=== PATIENT | female | born 1975 | race Caucasian/White ===

== ENCOUNTER 2017-01-23 08:00 | Outpatient (CLI) | payer OTHER ==
[2017-01-23 19:14] LABS: BASOPHILS % (AUTO) 0.5 %; EOSINOPHILS # (AUTO) 0.1 10^3/uL (0.0-0.7); HCT - HEMATOCRIT 40.4 % (37.0-47.0); HGB - HEMOGLOBIN 13.4 g/dL (12.0-16.0); LYMPHOCYTES # (AUTO) 1.8 10^3/uL (1.5-3.5); MEAN CORPUSCULAR HEMOGLOBIN 30.8 pg (27.0-31.0); MEAN CORPUSCULAR VOLUME 93.3 fL (81.0-99.0); MEAN PLATELET VOLUME 8.7 fL (7.9-10.8); MONOCYTES # (AUTO) 0.4 10^3/uL (0.0-1.0); MONOCYTES % (AUTO) 5.9 %; NEUTROPHILS # (AUTO) 5.2 10^3/uL (1.5-6.6); NEUTROPHILS % (AUTO) 68.6 %; NUCLEATED RED BLOOD CELLS AUTO 0.1 /100WBC; RED BLOOD COUNT 4.33 10^6/uL (4.20-5.40); RED CELL DISTRIBUTION WIDTH 13.7 % (12.0-15.0); UNCORRECTED WHITE BLOOD COUNT 7.5 x10^3/uL; WHITE BLOOD COUNT 7.5 x10^3/uL (4.8-10.8)
[2017-01-23 19:31] LABS: ALBUMIN/GLOBULIN RATIO 1.2 (1.0-2.2); BILIRUBIN,TOTAL 0.6 mg/dL (0.2-1.0); BUN - BLOOD UREA NITROGEN 8 mg/dL (6-20); CALCIUM 8.9 mg/dL (8.5-10.3); CARBON DIOXIDE - CO2 24 mmol/L (21-32); CHLORIDE 102 mmol/L (101-111); CHOL/HDL RATIO 6.9 (<4.4); CHOLESTEROL 233 mg/dL; CREATININE 0.6 mg/dL (0.4-1.0); GFR - MDRD 110 (>89); GLUCOSE 90 mg/dL (70-100); HDL CHOLESTEROL 34 mg/dL; POTASSIUM 4.1 mmol/L (3.5-5.0); SODIUM 135 mmol/L (135-145); TRIGLYCERIDES 138 mg/dL; VLDL CHOLESTEROL 28 mg/dL
[2017-01-23 19:40] LABS: THYROID STIMULATING HORMONE 1.7 uIU/mL (0.34-5.60)
== END 2017-01-23 08:01 | disposition home or self-care (01) ==
LOC: LAB.N 08:00
PROVIDERS: ATTEND Family Medicine
DX: J45.909 Unspecified asthma, uncomplicated (principal); E06.3 Autoimmune thyroiditis; F41.8 Other specified anxiety disorders; E66.9 Obesity, unspecified; E55.9 Vitamin D deficiency, unspecified
CPT/HCPCS: 36415; 80050; 80061; 82306; 84432; 84439; 84481; 86800

== ENCOUNTER 2017-02-10 12:32 | Emergency (ER) | payer OTHER, MEDICAID ==
[2017-02-10] MEDS ORDERED: DEXAMETHASONE 10 MG/ML VIAL PO STA (13:05)
[2017-02-10] MEDS ORDERED: CHERRY SYRUP 10 ML UDC PO ONE (13:17)
[2017-02-10] MEDS ORDERED: DEXAMETHASONE 10 MG/ML VIAL ONE (13:17)
[2017-02-10 13:33] LABS: RAPID STREP SCREEN REAGENT QC YELLOW (YELLOW)
[2017-02-10 14:05] VITALS: BP 123/84
--- NOTE | 2017-02-10 14:08 | XRAY Preliminary Report ---
Exam: XR CHEST 2 VIEW PA/LAT IMPRESSION: Normal 2-view chest radiography. [facility] SITE ID: [id number]
--- NOTE | 2017-02-10 14:11 | ED Physician Documentation ---
PD HPI URI - Stated complaint Stated Complaint: BACK PX WHEN BREATHING/COUGH - Chief complaint Chief Complaint: Resp - History obtained from History obtained from: Patient - History of Present Illness Timing - onset: How many days ago (3) Timing duration: Days (3) Timing details: Gradual onset, Still present Associated symptoms: Nasal congestion, Rhinorrhea, Sore throat, Swollen nodes, Productive cough Contributing factors: Sick contact Improves by: Rest, Medication, MDI/nebulizer Worsened by: Activity Similar symptoms before: Diagnosis (pneumonia and bronchitis.) Recently seen: Not recently seen Review of Systems Constitutional: reports: Myalgias, Fatigue. 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 - Present Medications Home Medications: Ambulatory Orders Medication Instructions Recorded Confirmed Azithromycin [Zithromax] 250 mg PO DAILY #6 tablet 02/10/17 Benzonatate [Tessalon] 100 - 200 mg PO TID PRN #20 capsule 02/10/17 Escitalopram Oxalate [Lexapro] 20 mg PO DAILY 02/10/17 02/10/17 Gabapentin 300 mg PO DAILY 02/10/17 02/10/17 Levalbuterol Tartrate [Xopenex Hfa] 1 - 2 puffs PO Q4HR 02/10/17 02/10/17 busPIRone [Buspar] 15 mg PO BID 02/10/17 02/10/17 predniSONE [Deltasone] 10 mg PO DAILY #26 tablet 02/10/17 - Allergies Allergies/Adverse Reactions: Allergies Allergy/AdvReac Type Severity Reaction Status Date / Time albuterol Allergy Dizziness Verified 02/10/17 12:53 tramadol Allergy Itching Verified 02/10/17 12:53 codeine AdvReac Nausea Verified 02/10/17 12:53 - Social History Does the pt smoke?: No Smoking Status: Never smoker PD ED PE NORMAL - Vitals Vital signs reviewed: Yes (hypertensive) - General General: Alert and oriented X 3, No acute distress, Well developed/nourished - HEENT HEENT: Atraumatic, PERRL, EOMI, Ears normal, Moist mucous membranes, Other ( posterior pharyngeal erythema ) - Neck Neck: Supple, no meningeal sign, No bony TTP - Cardiac Cardiac: RRR, No murmur - Respiratory Respiratory: No respiratory distress, Other (dimisished breath sounds and scattered wheezes) - Abdomen Abdomen: Soft, Non tender - Back Back: No CVA TTP, No spinal TTP - Derm Derm: Normal color, Warm and dry, No rash - Extremities Extremities: No deformity, No edema - Neuro Neuro: No motor deficit, No sensory deficit Eye Opening: Spontaneous Motor: Obeys Commands Verbal: Oriented GCS Score: 15 - Psych Psych: Normal mood, Normal affect Results - Vitals Vitals: Vital Signs - 24 hr 02/10/17 12:40 Temperature 36.6 C Heart Rate 81 Respiratory 18 Rate Blood Pressure 128/83 H O2 Saturation 99 Oxygen O2 Source Room air - Labs Labs: Laboratory Tests 02/10/17 13:05 Group A Strep Rapid Negative - Rads (name of study) 2 view chest Radiology: Prelim report reviewed (Impression: Normal two-view chest radiography.), EMP read indepedently, See rad report PD MEDICAL DECISION MAKING - ED course Complexity details: reviewed results, re-evaluated patient, considered differential, d/w patient ED course: 41-year-old female with a history of asthma has developed a cough congestion and production of sputum. She did have a sore throat with the onset of this illness and continues to have some sore throat and she is coughing up yellow and green phlegm. She has had pneumonia previously and has a pain in her back in a specific area with each cough. Her chest x-ray is clear she is administered dexamethasone orally in the emergency department and we will put her on some antibiotic. Departure - Departure Disposition: 01 Home, Self Care Clinical Impression: Asthmatic bronchitis Qualifiers: Asthma severity: moderate Asthma complication type: with acute exacerbation Condition: Stable Instructions: ED Bronchitis Asthmatic Follow-Up: Oswaldo Calderón MD [Primary Care Provider] - Prescriptions: Azithromycin [Zithromax] 250 mg PO DAILY #6 tablet Benzonatate [Tessalon] 100 - 200 mg PO TID PRN #20 capsule PRN Reason: Cough predniSONE [Deltasone] 10 mg PO DAILY #26 tablet
--- NOTE | 2017-02-10 14:14 | XRAY Report ---
EXAM: CHEST RADIOGRAPHY EXAM DATE: 02/10/2017 01:46 PM. CLINICAL HISTORY: Cough, shortness of breath. Pleuritic back pain for one day. COMPARISON: None. TECHNIQUE: 2 views. FINDINGS: Lungs/Pleura: No focal opacities evident. No pleural effusion. No pneumothorax. Normal volumes. Mediastinum: Heart and mediastinal contours are unremarkable. Other: None. IMPRESSION: Normal 2-view chest radiography. [facility] Referring Provider Line: [phone] SITE ID: [id number]
== END 2017-02-10 14:22 | disposition home or self-care (01) ==
LOC: ED 12:32
DX: J45.41 Moderate persistent asthma with (acute) exacerbation (principal); J40 Bronchitis, not specified as acute or chronic
CPT/HCPCS: 71020; 87070; 87430; 99283; A9270

== ENCOUNTER 2017-07-03 02:42 | Outpatient (CLI) | payer OTHER, MEDICAID | END 2017-07-03 02:43 | disposition short-term general hospital (02) | LOC: EMS 02:42 | PROVIDERS: ATTEND Surgery | DX: R10.9 Unspecified abdominal pain (principal); R11.2 Nausea with vomiting, unspecified | CPT/HCPCS: A0425; A0427 ==

== ENCOUNTER 2017-09-08 12:00 | Outpatient (CLI) | END 2017-09-08 12:01 | disposition home or self-care (01) ==

== ENCOUNTER 2017-10-08 09:06 | Outpatient (CLI) | payer MEDICAID ==
[2017-10-08 12:37] LABS: BASOPHILS % (AUTO) 0.6 %; EOSINOPHILS # (AUTO) 0.1 10^3/uL (0.0-0.7); EOSINOPHILS % (AUTO) 1.2 %; HGB - HEMOGLOBIN 13.7 g/dL (12.0-16.0); LYMPHOCYTES # (AUTO) 1.7 10^3/uL (1.5-3.5); LYMPHOCYTES % (AUTO) 22.7 %; MEAN CORPUSCULAR HEMOGLOBIN 30.5 pg (27.0-31.0); MEAN CORPUSCULAR HGB CONC 33.5 g/dL (32.0-36.0); MEAN CORPUSCULAR VOLUME 90.8 fL (81.0-99.0); MEAN PLATELET VOLUME 8.7 fL (7.9-10.8); MONOCYTES # (AUTO) 0.4 10^3/uL (0.0-1.0); MONOCYTES % (AUTO) 4.9 %; NEUTROPHILS # (AUTO) 5.4 10^3/uL (1.5-6.6); NEUTROPHILS % (AUTO) 70.6 %; PLT - PLATELET COUNT 303 10^3/uL (130-450); RED BLOOD COUNT 4.51 10^6/uL (4.20-5.40); RED CELL DISTRIBUTION WIDTH 14.3 % (12.0-15.0); WHITE BLOOD COUNT 7.7 x10^3/uL (4.8-10.8)
[2017-10-08 12:55] LABS: THYROID STIMULATING HORMONE 2.16 uIU/mL (0.34-5.60)
[2017-10-08 12:57] LABS: ALKALINE PHOSPHATASE 65 IU/L (42-121); ALT ALANINE AMINOTRANSFERASE 17 IU/L (10-60); AST ASPARTATE AMINOTRANSFERASE 18 IU/L (10-42); BILIRUBIN,TOTAL 0.6 mg/dL (0.2-1.0); BUN - BLOOD UREA NITROGEN 13 mg/dL (6-20); CALCIUM 9.1 mg/dL (8.5-10.3); CARBON DIOXIDE - CO2 24 mmol/L (21-32); CHLORIDE 104 mmol/L (101-111); CHOL/HDL RATIO 8.6 (<4.4); CHOLESTEROL 293 mg/dL; CREATININE 0.7 mg/dL (0.4-1.0); GFR - MDRD 92 (>89); GLUCOSE 98 mg/dL (70-100); HDL CHOLESTEROL 34 mg/dL; LDL CHOLESTEROL,CALCULATED 215 mg/dL; LDL/HDL RATIO 6.3 (<4.4); SODIUM 137 mmol/L (135-145); TOTAL PROTEIN 8.1 g/dL (6.7-8.2); VLDL CHOLESTEROL 44 mg/dL
[2017-10-08 12:59] LABS: FREE T4 (FREE THYROXINE) 0.79 ng/dL (0.58-1.64)
== END 2017-10-08 09:07 | disposition home or self-care (01) ==
LOC: LAB.N 09:06
PROVIDERS: ATTEND Family Medicine
DX: E55.9 Vitamin D deficiency, unspecified (principal); E66.9 Obesity, unspecified; E06.3 Autoimmune thyroiditis
CPT/HCPCS: 36415; 80050; 80061; 82306; 83721; 84439

== ENCOUNTER 2018-02-23 08:00 | Outpatient (CLI) | payer OTHER, MEDICAID ==
[2018-02-23 14:36] LABS: BASOPHILS % (AUTO) 0.4 %; EOSINOPHILS # (AUTO) 0.1 10^3/uL (0.0-0.7); HGB - HEMOGLOBIN 13.4 g/dL (12.0-16.0); LYMPHOCYTES # (AUTO) 2.1 10^3/uL (1.5-3.5); MEAN CORPUSCULAR HEMOGLOBIN 30.8 pg (27.0-31.0); MEAN CORPUSCULAR HGB CONC 33.9 g/dL (32.0-36.0); MEAN PLATELET VOLUME 9.2 fL (7.9-10.8); MONOCYTES # (AUTO) 0.4 10^3/uL (0.0-1.0); MONOCYTES % (AUTO) 6.1 %; NEUTROPHILS # (AUTO) 4.5 10^3/uL (1.5-6.6); NEUTROPHILS % (AUTO) 62.5 %; PLT - PLATELET COUNT 272 10^3/uL (130-450); RED BLOOD COUNT 4.36 10^6/uL (4.20-5.40); RED CELL DISTRIBUTION WIDTH 13.8 % (12.0-15.0); WHITE BLOOD COUNT 7.3 x10^3/uL (4.8-10.8)
[2018-02-23 15:11] LABS: ALBUMIN 4.2 g/dL (3.2-5.5); ALBUMIN/GLOBULIN RATIO 1.3 (1.0-2.2); ALKALINE PHOSPHATASE 63 IU/L (42-121); ALT ALANINE AMINOTRANSFERASE 19 IU/L (10-60); AST ASPARTATE AMINOTRANSFERASE 21 IU/L (10-42); BILIRUBIN,TOTAL 0.4 mg/dL (0.2-1.0); BUN - BLOOD UREA NITROGEN 5 mg/dL (6-20); CALCIUM 8.8 mg/dL (8.5-10.3); CARBON DIOXIDE - CO2 26 mmol/L (21-32); CHLORIDE 103 mmol/L (101-111); CREATININE 0.7 mg/dL (0.4-1.0); GFR - MDRD 92 (>89); GLUCOSE 103 mg/dL (70-100); SODIUM 137 mmol/L (135-145); TOTAL PROTEIN 7.5 g/dL (6.7-8.2)
[2018-02-23 15:12] LABS: BILIRUBIN,DIRECT < 0.1 mg/dL (0.1-0.5)
== END 2018-02-23 23:59 | disposition home or self-care (01) ==
LOC: LAB.N 08:00
PROVIDERS: ATTEND Nurse Practitioner Family
DX: F33.1 Major depressive disorder, recurrent, moderate (principal)
CPT/HCPCS: 36415; 80053; 80076; 82306; 84443; 85025

== ENCOUNTER 2018-09-28 11:51 | Emergency (ER) | payer OTHER, MEDICAID ==
[2018-09-28 12:09] LABS: BASOPHILS % (AUTO) 0.3 %; EOSINOPHILS # (AUTO) 0.1 10^3/uL (0.0-0.7); EOSINOPHILS % (AUTO) 0.7 %; HGB - HEMOGLOBIN 14.7 g/dL (12.0-16.0); LYMPHOCYTES # (AUTO) 1.5 10^3/uL (1.5-3.5); LYMPHOCYTES % (AUTO) 19.9 %; MEAN CORPUSCULAR HEMOGLOBIN 29.9 pg (27.0-31.0); MEAN CORPUSCULAR HGB CONC 33.2 g/dL (32.0-36.0); MEAN CORPUSCULAR VOLUME 90.2 fL (81.0-99.0); MEAN PLATELET VOLUME 10.7 fL (7.9-10.8); MONOCYTES # (AUTO) 0.4 10^3/uL (0.0-1.0); MONOCYTES % (AUTO) 5.5 %; NEUTROPHILS # (AUTO) 5.4 10^3/uL (1.5-6.6); NEUTROPHILS % (AUTO) 72.9 %; PLT - PLATELET COUNT 326 10^3/uL (130-450); RED BLOOD COUNT 4.91 10^6/uL (4.20-5.40); RED CELL DISTRIBUTION WIDTH 13.6 % (12.0-15.0); WHITE BLOOD COUNT 7.5 x10^3/uL (4.8-10.8)
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
[2018-09-28 12:26] LABS: ACETAMINOPHEN < 10 ug/mL (10-30); ALBUMIN 4.4 g/dL (3.2-5.5); ALBUMIN/GLOBULIN RATIO 1.1 (1.0-2.2); ALKALINE PHOSPHATASE 63 IU/L (42-121); ALT ALANINE AMINOTRANSFERASE 25 IU/L (10-60); AST ASPARTATE AMINOTRANSFERASE 19 IU/L (10-42); BILIRUBIN,TOTAL 0.3 mg/dL (0.2-1.0); BUN - BLOOD UREA NITROGEN 7 mg/dL (6-20); CALCIUM 9.3 mg/dL (8.5-10.3); CARBON DIOXIDE - CO2 21 mmol/L (21-32); CHLORIDE 105 mmol/L (101-111); CREATININE 0.7 mg/dL (0.4-1.0); GFR - MDRD 92 (>89); GLUCOSE 174 mg/dL (70-100); LIPASE 30 U/L (22-51); SALICYLATE < 6.0 mg/dL; SODIUM 139 mmol/L (135-145); TOTAL PROTEIN 8.5 g/dL (6.7-8.2)
[2018-09-28 13:42] LABS: MUDS CUTOFF CONCENTRATIONS CUTOFF CONC BELOW:
[2018-09-28 13:46] LABS: BILIRUBIN,URINE NEGATIVE (NEGATIVE); GLUCOSE, URINE (UA) 250 mg/dL (NEGATIVE); KETONES,URINE (UA) NEGATIVE (NEGATIVE); LEUKOCYTE ESTERASE, URINE TRACE (NEGATIVE); NITRITE,URINE NEGATIVE (NEGATIVE); OCCULT BLOOD,URINE NEGATIVE (NEGATIVE); PROTEIN,URINE NEGATIVE (NEGATIVE); UROBILINOGEN,URINE 0.2 (NORMAL) E.U./dL (NORMAL)
[2018-09-28 13:49] LABS: CLARITY,URINE HAZY (CLEAR); HCG UR QUAL NEGATIVE
[2018-09-28 13:55] LABS: AMPHETAMINE SCREEN,URINE NEGATIVE (NEGATIVE); BENZODIAZEPINES SCREEN, URINE NEGATIVE (NEGATIVE); COCAINE SCREEN URINE NEGATIVE (NEGATIVE); METHADONE SCREEN, URINE NEGATIVE (NEGATIVE); METHAMPHETAMINES SCREEN, URINE NEGATIVE (NEGATIVE); OPIATE SCREEN, URINE NEGATIVE (NEGATIVE); OXYCODONE SCREEN, URINE NEGATIVE (NEGATIVE); PROPOXYPHENE SCREEN, URINE NEGATIVE (NEGATIVE); TRICYCLIC ANTIDEPRESSANT,URINE NEGATIVE (NEGATIVE)
[2018-09-28 14:07] LABS: BACTERIA,URINE Many /HPF (None Seen); RBC,URINE 0-5 /HPF (0-5); SQUAMOUS EPITHELIAL CELL,UR MANY Squamous (<= Few)
[2018-09-28] MEDS ORDERED: ACETAMINOPHEN 325 MG TABLET PO STA (17:18)
[2018-09-28 18:16] VITALS: BP 136/78
== END 2018-09-28 18:26 | disposition home or self-care (01) ==
LOC: ED 11:51
DX: R45.851 Suicidal ideations (principal); F32.9 Major depressive disorder, single episode, unspecified
CPT/HCPCS: 36415; 80320; 80329; 81001; 81025; 83690; 99283; A9270; 80053; 80306; 80307; 81003; 84443; 85025; 87086

== ENCOUNTER 2019-05-19 07:52 | Outpatient (CLI) | payer OTHER, MEDICAID ==
--- NOTE | 2019-05-19 09:24 | XRAY Report ---
Reason: RIGHT FOOT PAIN Procedure Date: 05/19/2019 Accession Number: [id number] / [id number] Procedure: WCP - Foot 3 View RT CPT Code: Final Report FULL RESULT: EXAM: RIGHT FOOT RADIOGRAPHY EXAM DATE: 05/19/2019 07:50 AM. CLINICAL HISTORY: RIGHT FOOT PAIN. COMPARISON: None. TECHNIQUE: 3 views. FINDINGS: Bones: Normal. No fractures or bone lesions. Joints: First metatarsophalangeal joint space narrowing with dorsal marginal spurring. No subluxations. Soft Tissues: Normal. No soft tissue swelling. IMPRESSION: 1. Mild right first metatarsophalangeal joint degenerative changes. [facility]
== END 2019-05-19 23:59 | disposition home or self-care (01) ==
LOC: DI.WCP 07:52
PROVIDERS: ATTEND Family Medicine
DX: M19.071 Primary osteoarthritis, right ankle and foot (principal)

== ENCOUNTER 2019-06-23 07:34 | Outpatient (CLI) | payer OTHER, MEDICAID ==
[2019-06-23] MEDS ORDERED: GADOBUTROL 10 MMOL/10 ML VIAL ONE (07:44)
[2019-06-23] MEDS ORDERED: GADOBUTROL 10 MMOL/10 ML VIAL IVP ONE (08:28)
--- NOTE | 2019-06-23 10:19 | MRI Report ---
Reason: DEC VISUAL ACUITY, BALANCE PROBLEM, URINARY INCONT Procedure Date: 06/23/2019 Accession Number: [id number] / [id number] Procedure: MRI - Brain W/WO CPT Code: Final Report FULL RESULT: EXAM: MRI BRAIN WITHOUT AND WITH CONTRAST EXAM DATE: 06/23/2019 09:06 AM. CLINICAL HISTORY: Decreased visual acuity, balance problem, urinary incontinence. Body tingling. Episodes of falling over the past 3 months. Rule out MS. COMPARISON: None. TECHNIQUE: Multiplanar, multisequence T1-weighted and fluid-sensitive MR sequences of the brain were performed before and after administration of intravenous contrast. Sequences optimized for routine evaluation. Other: None. IV Contrast: 8 mL Gadavist. FINDINGS: Brain Volume: Normal for age. Parenchyma: No acute hemorrhage, mass, or infarct. No significant quintanilla matter or white matter signal abnormality is appreciated. No abnormal parenchymal enhancement. Ventricles/Cisterns: There is an arcuate CSF signal intensity expansion centered at the vellum interpositum. This measures approximately 20 x 41 x 28 mm (SI by AP by RL). Localized mass effect is seen. Elevation and displacement of the splenium and posterior body of the corpus callosum is seen. Lateral deviation of the body of the fornix is seen and anterior deviation of the column is present. Inferior displacement of the internal cerebral veins is noted. Mild effacement of the posterior roof of the third ventricle and superomedial thalami is noted. No hydrocephalus. Otherwise, No abnormal extra-axial fluid collection or hemorrhage. Orbits: Symmetric and unremarkable. Sella Turcica: The pituitary gland, cavernous sinuses, suprasellar cistern and optic chiasm are unremarkable. IAC: Symmetric and unremarkable. Vasculature: Normal signal flow void is seen in the major arterial structures at the skull base. The dural sinuses are patent and enhance normally. Sinuses: Opacification of right frontal and anterior ethmoid sinuses is seen. Opacification of the right frontoethmoidal recess is noted. Bilateral mastoid air cells are clear. Bones: No focal pathologic appearing marrow signal changes. Other: The visualized nasopharynx and infratemporal fossa are unremarkable. IMPRESSION: 1. 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 Localized mass effect is seen. This suggests arachnoid cyst. 2. No acute intracranial abnormality. No intra-axial mass, infarct, hemorrhage, or abnormal enhancement. No MRI appearance suggestive of demyelination/MS. 3. Opacification of right frontoethmoidal recess as well as frontal and anterior ethmoid sinuses. [facility]
== END 2019-06-23 07:35 | disposition home or self-care (01) ==
LOC: DI 07:34
PROVIDERS: ATTEND Family Medicine
DX: G93.0 Cerebral cysts (principal); H54.7 Unspecified visual loss; R32 Unspecified urinary incontinence; R27.9 Unspecified lack of coordination
CPT/HCPCS: 70553; A9585